=== PATIENT | female | born 1935 ===

== ENCOUNTER → 2018-10-25 10:03 | Outpatient (CLI) | payer MEDICARE ==
[~2018-10-25 10:03] MED LIST: ALBUTEROL SULF8.5 GM; ALBUTEROL SULF8.5 GM INH; ARIMIDEX; CARDIZEM CD120 MG PO; CELEBREX200 MG PO; CYCLOSPORINE; GLUCOSAMINE HC500 MG PO; LISINOPRIL5 MG PO; MAGNESIUM MALATE; OMEPRAZOLE20 M1 PO; PACERONE200 MG PO; PACERONE400 MG PO; PRINIVIL10 MG PO; SYNTHROID88 MCG PO; TIROSINT88 MCG PO; VIACTIV SOFT C1 EACH; VITAMIN B-12250 MC3 PO; XANAX0.5 MG PO
== END | disposition home or self-care (01) ==
LOC: D.MRI 10:03
DX: M87.059 Idiopathic aseptic necrosis of unspecified femur (principal)

== ENCOUNTER → 2018-11-05 18:22 | Outpatient (CLI) | payer MEDICARE | END | disposition home or self-care (01) | LOC: D.LABREF 18:22 | PROVIDERS: ATTEND Orthopaedic Surgery | DX: M17.12 Unilateral primary osteoarthritis, left knee (principal) ==